=== PATIENT | male | born 1990 | race Caucasian/White ===

== ENCOUNTER 2017-05-25 16:35 | Emergency (ER) | payer OTHER ==
[~2017-05-25] VITALS: Ht 193 cm; Wt 81.6 kg
[~2017-05-25 16:35] MED LIST: DAYPRO600 M1 PO; NAPROSYN500 MG PO; ROBAXIN750 MG PO
[2017-05-25] MEDS ORDERED: CHLORZOXAZONE500 M2 PO (17:20)
[2017-05-25] MEDS ORDERED: NAPROSYN500 MG PO (17:20)
== END 2017-05-25 20:13 | disposition home or self-care (01) ==
LOC: ED 16:35
DX: M54.5 Low back pain (principal); R03.0 Elevated blood-pressure reading, without diagnosis of hypertension; F17.200 Nicotine dependence, unspecified, uncomplicated

== ENCOUNTER 2018-09-17 02:29 | Emergency (ER) | payer SELFPAY ==
[~2018-09-17] VITALS: Ht 193 cm; Wt 77.1 kg
[~2018-09-17 02:29] MED LIST changes: +CHLORZOXAZONE500 M2 PO
[2018-09-17] MEDS ORDERED: IBU800 MG PO (02:33)
[2018-09-17] MEDS ORDERED: CLINDAMYCIN HC300 MG PO (02:33)
== END 2018-09-17 02:40 | disposition home or self-care (01) ==
LOC: ED 02:29
DX: K02.9 Dental caries, unspecified (principal); F17.200 Nicotine dependence, unspecified, uncomplicated; Z79.899 Other long term (current) drug therapy

== ENCOUNTER 2019-12-03 22:36 | Emergency (ER) | payer BC ==
[~2019-12-03] VITALS: Ht 190.5 cm; Wt 79.4 kg
[~2019-12-03 22:36] MED LIST changes: +CLINDAMYCIN HC300 MG PO; +IBU800 MG PO
[2019-12-03 23:44] LABS: BASO % 0.2 % (0.0-1.0); EOS # 0.1 10*3/uL (0.0-0.4); EOS % 0.6 % (1.0-4.0); HEMATOCRIT 46.9 % (42.0-52.0); LYMPH # 1.5 10*3/uL (1.3-4.4); LYMPH % 18.4 % (27.0-41.0); MEAN CELL VOLUME 88.2 fl (80.0-94.0); MEAN CORPUSCULAR HGB 28.9 pg (27.0-31.0); MEAN CORPUSCULAR HGB CONC 32.8 g/dl (33.0-37.0); MEAN PLATELET VOLUME 8.7 fl (9.6-12.3); MONO # 0.6 10*3/uL (0.1-1.0); MONO % 7.2 % (3.0-9.0); NEUT # 5.9 10*3/uL (2.3-7.9); NEUT % 73.1 % (47.0-73.0); PLATELET COUNT AUTOMATED 265 10*3/uL (130-400); RED BLOOD COUNT 5.32 10*6/uL (4.50-5.90); RED CELL DISTRI WIDTH 13.2 % (0-14.5); WHITE BLOOD COUNT 8.1 10*3/uL (4.8-10.8)
[2019-12-04 00:01] LABS: ALBUMIN 4.2 gm/dl (3.1-4.5); ALKALINE PHOSPHATASE 42 U/L (45-117); BUN 16 mg/dl (7-24); CHLORIDE 109 mmol/L (98-107); CREATININE 0.97 mg/dL (0.70-1.30); POTASSIUM 3.8 mmol/L (3.5-5.1); SGOT/AST 20 IU/L (3-35); SGPT/ALT 23 U/L (12-78); SODIUM 139 mmol/L (136-145); TOTAL PROTEIN 7.3 gm/dL (6.4-8.2)
[2019-12-04 00:12] LABS: BILIRUBIN NEGATIVE (NEGATIVE); BLOOD NEGATIVE (NEGATIVE); CLARITY CLEAR (CLEAR); COLOR YELLOW (YELLOW); GLUCOSE NEGATIVE (NEGATIVE); KETONE NEGATIVE (NEGATIVE); LEUKO ESTERASE NEGATIVE (NEGATIVE); NITRITE NEGATIVE (NEGATIVE); UROBILINOGEN 0.2 E.U./dl (0.2-1.0)
[2019-12-04 00:21] LABS: BACTERIA TRACE; EPITHELIAL CELLS 0-2; MUCOUS 2+; RBC 0-2 rbc/hpf (0-2)
[2019-12-05 07:06] LABS: HEP B CORE AB, IGM Negative (Negative); HEPATITIS B SURFACE AG Negative (Negative); HEPATITIS C VIRUS ANTIBODY <0.1 s/co (0.0-0.9)
== END 2019-12-04 02:22 | disposition home or self-care (01) ==
LOC: ED 22:36
PROVIDERS: Emergency Medicine
DX: F45.1 Undifferentiated somatoform disorder (principal); F17.200 Nicotine dependence, unspecified, uncomplicated; Z79.899 Other long term (current) drug therapy

== ENCOUNTER 2019-12-09 20:18 | Emergency (ER) | payer BC ==
[~2019-12-09] VITALS: Wt 79.4 kg
== END 2019-12-09 23:04 | disposition home or self-care (01) ==
LOC: ED 20:18
DX: T15.91XA Foreign body on external eye, part unspecified, right eye, initial encounter (principal); Z79.899 Other long term (current) drug therapy; W45.8XXA Other foreign body or object entering through skin, initial encounter; Y93.89 Activity, other specified; Y92.89 Other specified places as the place of occurrence of the external cause; Y99.8 Other external cause status

== ENCOUNTER → 2020-03-31 | Outpatient (CLI) | payer SELFPAY | END | disposition home or self-care (01) | LOC: COVID19 14:56 | PROVIDERS: ATTEND Student in an Organized Health Care Education/Training Program | DX: U07.1 COVID-19 (principal) ==

== ENCOUNTER → 2020-12-11 | Outpatient (CLI) | payer OTHER ==
[2020-12-11 14:21] LABS: HEMATOCRIT 43.4 % (42.0-52.0); MEAN CELL VOLUME 88.9 fl (80.0-94.0); MEAN CORPUSCULAR HGB 29.7 pg (27.0-31.0); MEAN CORPUSCULAR HGB CONC 33.4 g/dl (33.0-37.0); MEAN PLATELET VOLUME 8.7 fl (9.6-12.3); RED BLOOD COUNT 4.88 10*6/uL (4.50-5.90); WHITE BLOOD COUNT 6.3 10*3/uL (4.8-10.8)
[2020-12-11 14:38] LABS: ALKALINE PHOSPHATASE 34 U/L (45-117); BUN 14 mg/dl (7-24); CHLORIDE 108 mmol/L (98-107); CHOLESTEROL 97 mg/dL (<200); CREATININE 0.77 mg/dL (0.70-1.30); FREE T4 0.85 ng/dl (0.76-1.46); LDL CHOLESTEROL 38 mg/dL (9-159); POTASSIUM 3.9 mmol/L (3.5-5.1); SGOT/AST 16 IU/L (3-35); SGPT/ALT 21 U/L (12-78); SODIUM 139 mmol/L (136-145); TOTAL PROTEIN 6.9 gm/dL (6.4-8.2); TRIGLYCERIDES 46 mg/dl (<150)
[2020-12-11 14:46] LABS: VITAMIN D, 25-HYDROXY 28.1 ng/mL (30-100)
== END | disposition home or self-care (01) ==
LOC: LAB 13:35
PROVIDERS: ATTEND Family Medicine
DX: E55.9 Vitamin D deficiency, unspecified (principal); R53.82 Chronic fatigue, unspecified; M25.50 Pain in unspecified joint; R63.4 Abnormal weight loss; R20.2 Paresthesia of skin; K58.9 Irritable bowel syndrome, unspecified; R51.9 Headache, unspecified

== ENCOUNTER → 2021-05-21 | Outpatient (CLI) | payer OTHER ==
[2021-05-21 18:26] LABS: BASO % 0.3 % (0.0-1.0); EOS # 0.1 10*3/uL (0.0-0.4); EOS % 1.8 % (1.0-4.0); HEMATOCRIT 49.1 % (42.0-52.0); LYMPH # 2.1 10*3/uL (1.3-4.4); LYMPH % 28.5 % (27.0-41.0); MEAN CELL VOLUME 90.3 fl (80.0-94.0); MEAN CORPUSCULAR HGB 29.8 pg (27.0-31.0); MEAN PLATELET VOLUME 8.7 fl (9.6-12.3); MONO # 0.6 10*3/uL (0.1-1.0); MONO % 8.6 % (3.0-9.0); NEUT # 4.4 10*3/uL (2.3-7.9); NEUT % 60.5 % (47.0-73.0); PLATELET COUNT AUTOMATED 274 10*3/uL (130-400); RED BLOOD COUNT 5.44 10*6/uL (4.50-5.90); WHITE BLOOD COUNT 7.2 10*3/uL (4.8-10.8)
[2021-05-21 19:15] LABS: ALBUMIN 4.3 gm/dl (3.1-4.5); ALKALINE PHOSPHATASE 42 U/L (45-117); BUN 19 mg/dl (7-24); CHLORIDE 108 mmol/L (98-107); CREATININE 0.82 mg/dL (0.70-1.30); POTASSIUM 3.6 mmol/L (3.5-5.1); SGOT/AST 19 IU/L (3-35); SGPT/ALT 24 U/L (12-78); SODIUM 140 mmol/L (136-145); TOTAL PROTEIN 7.5 gm/dL (6.4-8.2)
[2021-05-23 12:06] LABS: SJOGREN ANTI-SS-A <0.2 AI (0.0-0.9); SJOREN AB, ANTI-SS-B <0.2 AI (0.0-0.9)
[2021-05-26 18:06] LABS: CODFISH, IGE <0.10 kU/L (Class 0); EGG WHITE, IGE <0.10 kU/L (Class 0); MILK (COW), IGE <0.10 kU/L (Class 0); PEANUT, IGE <0.10 kU/L (Class 0); SOYBEAN, IGE <0.10 kU/L (Class 0); WHEAT, IGE <0.10 kU/L (Class 0)
== END | disposition home or self-care (01) ==
LOC: LAB 17:35
PROVIDERS: ATTEND Internal Medicine
DX: H04.123 Dry eye syndrome of bilateral lacrimal glands (principal); R10.84 Generalized abdominal pain; Z91.018 Allergy to other foods; T78.40XA Allergy, unspecified, initial encounter; X58.XXXA Exposure to other specified factors, initial encounter

== ENCOUNTER → 2021-06-17 | Outpatient (CLI) | payer OTHER | END | disposition home or self-care (01) | LOC: US 06-03 09:30 | PROVIDERS: ATTEND Internal Medicine | DX: J44.9 Chronic obstructive pulmonary disease, unspecified (principal); J98.11 Atelectasis; R07.9 Chest pain, unspecified; R10.84 Generalized abdominal pain ==

== ENCOUNTER 2022-07-21 11:54 | Emergency (ER) | payer SELFPAY ==
[~2022-07-21] VITALS: Ht 190.5 cm; Wt 81.6 kg
[2022-07-21 13:37] LABS: BILIRUBIN Negative (Negative); BLOOD Negative (Negative); CLARITY Clear (Clear); COLOR Dark Yellow (Yellow); GLUCOSE Negative (Negative); KETONE 1+ (Negative); LEUKO ESTERASE Trace (Negative); NITRITE Negative (Negative); PH 5.5 (4.5-8.0); SPECIFIC GRAVITY >= 1.030 (1.001-1.030)
[2022-07-21 13:44] LABS: BASO % 0.2 % (0.0-1.0); EOS # 0.1 10*3/uL (0.0-0.4); EOS % 0.7 % (1.0-4.0); HEMATOCRIT 47.8 % (42.0-52.0); LYMPH # 1.6 10*3/uL (1.3-4.4); MEAN CELL VOLUME 87.5 fl (80.0-94.0); MEAN CORPUSCULAR HGB 29.3 pg (27.0-31.0); MEAN CORPUSCULAR HGB CONC 33.5 g/dl (33.0-37.0); MEAN PLATELET VOLUME 8.4 fl (9.6-12.3); MONO # 0.6 10*3/uL (0.1-1.0); MONO % 6.3 % (3.0-9.0); NEUT # 6.5 10*3/uL (2.3-7.9); NEUT % 74.3 % (47.0-73.0); PLATELET COUNT AUTOMATED 279 10*3/uL (130-400); RED BLOOD COUNT 5.46 10*6/uL (4.50-5.90); RED CELL DISTRI WIDTH 12.8 % (0-14.5); WHITE BLOOD COUNT 8.7 10*3/uL (4.8-10.8)
[2022-07-21 13:47] LABS: URINE AMPHETAMINES Negative (1000ng/ml); URINE BARBITURATES Negative (200ng/ml); URINE BENZODIAZEPINES Negative (200ng/ml); URINE CANNABINOIDS (THC) Positive (50ng/ml); URINE COCAINE Negative (300ng/ml); URINE METHADONE Negative (300ng/ml); URINE OPIATES Negative (300ng/ml); URINE PHENCYCLIDINE Negative (25ng/ml)
[2022-07-21 13:49] LABS: BACTERIA 2+; CALCIUM OXALATE CRYSTALS 1+
[2022-07-21 13:51] LABS: MUCOUS 2+
[2022-07-21 13:55] LABS: ALKALINE PHOSPHATASE 41 U/L (46-116); BUN 10 mg/dl (9-23); CHLORIDE 102 mmol/L (98-107); POTASSIUM 3.4 mmol/L (3.4-5.1); SGPT/ALT 25 U/L (10-49); TOTAL PROTEIN 7.4 gm/dL (6.0-8.0)
== END 2022-07-21 17:24 | disposition home or self-care (01) ==
LOC: ED 11:54
PROVIDERS: Physician Assistant
DX: Z20.2 Contact with and (suspected) exposure to infections with a predominantly sexual mode of transmission (principal)

== ENCOUNTER 2024-04-04 11:19 | Emergency (ER) | payer BC ==
[~2024-04-04] VITALS: Ht 193 cm; Wt 90.7 kg
[2024-04-04] MEDS ORDERED: VIBRAMYCIN100 MG PO (11:39)
[2024-04-04] MEDS ORDERED: METRONIDAZOLE 500 MG TAB PO ONE (11:40)
[2024-04-04 11:52] LABS: BILIRUBIN Negative (Negative); BLOOD Negative (Negative); CLARITY Clear (Clear); COLOR Dark Yellow (Yellow); GLUCOSE Negative (Negative); KETONE Trace (Negative); LEUKO ESTERASE Negative (Negative); NITRITE Negative (Negative); PH 5.5 (4.5-8.0); SPECIFIC GRAVITY >= 1.030 (1.001-1.030)
[2024-04-04 12:03] LABS: EPITHELIAL CELLS 0-2; MUCOUS 2+; WBC 0-2 wbc/hpf (0-5)
== END 2024-04-04 11:52 | disposition home or self-care (01) ==
LOC: ED 11:19
PROVIDERS: Physician Assistant Medical
DX: Z04.89 Encounter for examination and observation for other specified reasons (principal); Z90.89 Acquired absence of other organs; Z98.890 Other specified postprocedural states

== ENCOUNTER 2024-06-14 00:47 | Inpatient (IN) | payer BC ==
[~2024-06-14] VITALS: Ht 188 cm; Wt 81.7 kg
[2024-06-14 00:47] VITALS: BP 134/84
[~2024-06-14 00:47] MED LIST changes: +VIBRAMYCIN100 MG PO
[2024-06-14] MEDS ORDERED: diphenhydrAMINE hydrochloride 50 MG/ML VIAL IM PRN (00:55)
[2024-06-14] MEDS ORDERED: Midazolam Hydrochloride 5 MG/5 ML VIAL IM ONE ×2 (00:55→03:15)
[2024-06-14 01:25] LABS: HEMATOCRIT 49.4 % (42.0-52.0); MEAN CELL VOLUME 85.3 fl (80.0-94.0); MEAN CORPUSCULAR HGB 28.7 pg (27.0-31.0); MEAN CORPUSCULAR HGB CONC 33.6 g/dl (33.0-37.0); MEAN PLATELET VOLUME 8.4 fl (9.6-12.3); PLATELET COUNT AUTOMATED 313 10*3/uL (130-400); RED BLOOD COUNT 5.79 10*6/uL (4.50-5.90); RED CELL DISTRI WIDTH 12.8 % (0-14.5); WHITE BLOOD COUNT 22.9 10*3/uL (4.8-10.8)
[2024-06-14 01:28] LABS: MANUAL DIFF REFLEX YES
[2024-06-14] MEDS ORDERED: LORazepam 1 MG TAB PO ONE (01:30)
[2024-06-14 01:38] LABS: ACT PARTIAL THROMBO TIME 27.3 SECONDS (20.0-32.1)
[2024-06-14 01:42] LABS: ALKALINE PHOSPHATASE 41 U/L (46-116); BUN 14 mg/dl (9-23); CHLORIDE 102 mmol/L (98-107); CPK 1019 U/L (34-171); POTASSIUM 3.7 mmol/L (3.4-5.1); SGPT/ALT 17 U/L (5-49); TOTAL PROTEIN 7.9 gm/dL (6.0-8.0)
[2024-06-14 01:47] LABS: BURR CELLS FEW; OVALOCYTES FEW; PLATELET SUFFICIENCY NORMAL (NORMAL); TOTAL CELLS COUNTED 100 #CELLS
[2024-06-14 01:49] LABS: ETHYL ALCOHOL < 3.0 mg/dl (<3)
[2024-06-14 01:52] LABS: BILIRUBIN Negative (Negative); BLOOD Trace-Lysed (Negative); CLARITY Cloudy (Clear); COLOR Dark Yellow (Yellow); GLUCOSE Negative (Negative); KETONE 3+ (Negative); LEUKO ESTERASE Negative (Negative); NITRITE Negative (Negative); PH 5.5 (4.5-8.0); SPECIFIC GRAVITY 1.025 (1.001-1.030); UROBILINOGEN 0.2 E.U./dl (0.0-1.0)
[2024-06-14 02:00] LABS: URINE AMPHETAMINES Negative (1000ng/ml); URINE BARBITURATES Negative (200ng/ml); URINE BENZODIAZEPINES Negative (200ng/ml); URINE CANNABINOIDS (THC) Positive (50ng/ml); URINE COCAINE Negative (300ng/ml); URINE METHADONE Negative (300ng/ml); URINE OPIATES Negative (300ng/ml); URINE PHENCYCLIDINE Negative (25ng/ml)
[2024-06-14 02:01] LABS: BACTERIA 1+; FINE GRANULAR CAST 0-2; MUCOUS 1+; WBC 0-2 wbc/hpf (0-5)
[2024-06-14] MEDS ORDERED: SODIUM CHLORIDE 0.9% 1,000 ML IV ONE ×3 (02:25→10:35)
[2024-06-14] MEDS ORDERED: Midazolam Hydrochloride 5 MG/5 ML VIAL IM PRN (02:25)
[2024-06-14] MEDS ORDERED: Haloperidol Lactate 5 MG/ML AMP IM PRN (03:15)
[2024-06-14] MEDS ORDERED: diphenhydrAMINE hydrochloride 50 MG/ML VIAL IM ONE (03:20)
[2024-06-14 08:16] LABS: BASO % 0.2 % (0.0-1.0); EOS % 0.1 % (1.0-4.0); HEMATOCRIT 41.4 % (42.0-52.0); MEAN CELL VOLUME 85.2 fl (80.0-94.0); MEAN CORPUSCULAR HGB CONC 34.1 g/dl (33.0-37.0); MEAN PLATELET VOLUME 8.6 fl (9.6-12.3); MONO # 1.2 10*3/uL (0.1-1.0); MONO % 8.2 % (3.0-9.0); NEUT # 10.6 10*3/uL (2.3-7.9); NEUT % 69.7 % (47.0-73.0); PLATELET COUNT AUTOMATED 225 10*3/uL (130-400); RED BLOOD COUNT 4.86 10*6/uL (4.50-5.90); WHITE BLOOD COUNT 15.2 10*3/uL (4.8-10.8)
[2024-06-14] MEDS ORDERED: ACETAMINOPHEN 325 MG TAB PO PRN (10:30)
[2024-06-14] MEDS ORDERED: ACETAMINOPHEN 650 MG SUPP R PRN (10:30)
[2024-06-14] MEDS ORDERED: BISACODYL 10 MG SUPP R PRN (10:30)
[2024-06-14] MEDS ORDERED: BISACODYL 5 MG TAB PO PRN (10:30)
[2024-06-14 14:15] VITALS: BP 126/75
[2024-06-14 15:01] LABS: BUN 18 mg/dl (9-23); CHLORIDE 105 mmol/L (98-107); POTASSIUM 3.8 mmol/L (3.4-5.1)
[2024-06-14 15:02] LABS: CPK 2706 U/L (34-171)
[2024-06-14 16:00] VITALS: BP 100/60
[2024-06-14] MEDS ORDERED: Midazolam Hydrochloride 2 MG/2 ML VIAL IV ONE (16:40)
[2024-06-14] MEDS ORDERED: SODIUM CHLORIDE 0.9% 1,000 ML IV SCH (17:30)
[2024-06-14 20:00] VITALS: BP 106/63
[2024-06-15] VITALS: BP 110/75
[2024-06-15] MEDS ORDERED: Melatonin 5 MG TABLET PO PRN (00:45)
[2024-06-15 06:00] LABS: ALKALINE PHOSPHATASE 30 U/L (46-116); BUN 13 mg/dl (9-23); CHLORIDE 110 mmol/L (98-107); CHOLESTEROL 65 mg/dL (<200); LDL CHOLESTEROL 17 mg/dL (9-159); POTASSIUM 4.3 mmol/L (3.4-5.1); SGPT/ALT 39 U/L (5-49); TOTAL PROTEIN 5.2 gm/dL (6.0-8.0); TRIGLYCERIDES 38 mg/dl (<150)
[2024-06-15 06:21] LABS: BASO % 0.4 % (0.0-1.0); EOS # 0.1 10*3/uL (0.0-0.4); EOS % 1.3 % (1.0-4.0); MEAN CELL VOLUME 87.2 fl (80.0-94.0); MEAN CORPUSCULAR HGB 29.1 pg (27.0-31.0); MEAN CORPUSCULAR HGB CONC 33.4 g/dl (33.0-37.0); MEAN PLATELET VOLUME 8.8 fl (9.6-12.3); MONO # 0.8 10*3/uL (0.1-1.0); MONO % 11.1 % (3.0-9.0); NEUT # 3.9 10*3/uL (2.3-7.9); NEUT % 55.2 % (47.0-73.0); PLATELET COUNT AUTOMATED 206 10*3/uL (130-400); RED BLOOD COUNT 4.36 10*6/uL (4.50-5.90); RED CELL DISTRI WIDTH 13.2 % (0-14.5); WHITE BLOOD COUNT 7.1 10*3/uL (4.8-10.8)
[2024-06-15 08:00] VITALS: BP 128/76
[2024-06-15] MEDS ORDERED: SODIUM CHLORIDE 0.9% 1,000 ML IV SCH (09:55)
[2024-06-15] MEDS ORDERED: Enoxaparin Sodium 40 MG/0.4 ML SYR SC SCH (10:00)
[2024-06-15] MEDS ORDERED: CYANOCOBALAMIN 1,000 MCG/ML VIAL IM ONE (11:05)
[2024-06-15 12:00] VITALS: BP 117/71
[2024-06-15 16:00] VITALS: BP 142/61; BP 142/71
[2024-06-15 20:00] VITALS: BP 108/62
[2024-06-15] MEDS ORDERED: SODIUM CHLORIDE 0.9% 1,000 ML IV ONE (23:00)
[2024-06-16] VITALS: BP 130/60
[2024-06-16 06:17] LABS: BASO % 0.2 % (0.0-1.0); EOS # 0.1 10*3/uL (0.0-0.4); EOS % 0.7 % (1.0-4.0); HEMATOCRIT 41.8 % (42.0-52.0); MEAN CELL VOLUME 88.4 fl (80.0-94.0); MEAN CORPUSCULAR HGB CONC 32.8 g/dl (33.0-37.0); MONO # 0.7 10*3/uL (0.1-1.0); MONO % 8.5 % (3.0-9.0); NEUT # 5.6 10*3/uL (2.3-7.9); NEUT % 68.9 % (47.0-73.0); PLATELET COUNT AUTOMATED 248 10*3/uL (130-400); RED BLOOD COUNT 4.73 10*6/uL (4.50-5.90); RED CELL DISTRI WIDTH 12.9 % (0-14.5); WHITE BLOOD COUNT 8.1 10*3/uL (4.8-10.8)
[2024-06-16 06:26] LABS: BUN 7 mg/dl (9-23); CHLORIDE 105 mmol/L (98-107); POTASSIUM 3.9 mmol/L (3.4-5.1)
[2024-06-16 08:00] VITALS: BP 112/76
[2024-06-16 12:00] VITALS: BP 122/82
[2024-06-16 16:00] VITALS: BP 112/74
[2024-06-16] MEDS ORDERED: SODIUM CHLORIDE 0.9% 1,000 ML IV ONE (18:30)
[2024-06-16 21:00] VITALS: BP 116/74
[2024-06-16] MEDS ORDERED: OLANZapine 2.5 MG TAB PO SCH (22:00)
[2024-06-17 06:10] LABS: BASO % 0.5 % (0.0-1.0); EOS # 0.2 10*3/uL (0.0-0.4); EOS % 2.6 % (1.0-4.0); HEMATOCRIT 39.6 % (42.0-52.0); MEAN CORPUSCULAR HGB 28.9 pg (27.0-31.0); MEAN CORPUSCULAR HGB CONC 32.8 g/dl (33.0-37.0); MEAN PLATELET VOLUME 8.9 fl (9.6-12.3); MONO # 0.6 10*3/uL (0.1-1.0); MONO % 9.5 % (3.0-9.0); NEUT # 2.8 10*3/uL (2.3-7.9); NEUT % 42.1 % (47.0-73.0); PLATELET COUNT AUTOMATED 238 10*3/uL (130-400); RED CELL DISTRI WIDTH 13.2 % (0-14.5); WHITE BLOOD COUNT 6.6 10*3/uL (4.8-10.8)
[2024-06-17 06:28] LABS: BUN 9 mg/dl (9-23); CHLORIDE 109 mmol/L (98-107); POTASSIUM 4.2 mmol/L (3.4-5.1)
[2024-06-17 08:00] VITALS: BP 128/67
[2024-06-17] MEDS ORDERED: MG-AL HYDROXIDE/SIMETICONE 30 ML UDC PO ONE (09:00)
[2024-06-17] MEDS ORDERED: SODIUM CHLORIDE 0.9% 1,000 ML IV SCH (09:20)
[2024-06-17 12:00] VITALS: BP 124/67
[2024-06-17 16:00] VITALS: BP 130/63
[2024-06-17 20:00] VITALS: BP 130/73
[2024-06-18] VITALS: BP 130/60
[2024-06-18 06:15] LABS: BASO % 0.5 % (0.0-1.0); EOS # 0.3 10*3/uL (0.0-0.4); EOS % 3.4 % (1.0-4.0); HEMATOCRIT 44.4 % (42.0-52.0); MEAN CELL VOLUME 88.1 fl (80.0-94.0); MEAN CORPUSCULAR HGB 28.8 pg (27.0-31.0); MEAN CORPUSCULAR HGB CONC 32.7 g/dl (33.0-37.0); MEAN PLATELET VOLUME 8.9 fl (9.6-12.3); MONO # 0.7 10*3/uL (0.1-1.0); MONO % 8.3 % (3.0-9.0); NEUT # 3.9 10*3/uL (2.3-7.9); NEUT % 48.3 % (47.0-73.0); PLATELET COUNT AUTOMATED 266 10*3/uL (130-400); RED BLOOD COUNT 5.04 10*6/uL (4.50-5.90); RED CELL DISTRI WIDTH 13.2 % (0-14.5)
[2024-06-18 07:35] LABS: BUN 10 mg/dl (9-23); CHLORIDE 108 mmol/L (98-107); POTASSIUM 3.9 mmol/L (3.4-5.1)
[2024-06-18 08:00] VITALS: BP 122/65
[2024-06-18] MEDS ORDERED: SODIUM CHLORIDE 0.9% 1,000 ML IV SCH (08:15)
== END 2024-06-18 17:11 | DRG 558 ==
LOC: ED 00:47 → EDHOLD 09:20 → 4E 09:20
PROVIDERS: Emergency Medicine; Internal Medicine; Student in an Organized Health Care Education/Training Program; ADMIT Internal Medicine; ATTEND Internal Medicine
DX: M62.82 Rhabdomyolysis (principal); F23 Brief psychotic disorder; F33.9 Major depressive disorder, recurrent, unspecified; F29 Unspecified psychosis not due to a substance or known physiological condition; D72.825 Bandemia; F17.210 Nicotine dependence, cigarettes, uncomplicated; R73.9 Hyperglycemia, unspecified; R74.8 Abnormal levels of other serum enzymes; R74.01 Elevation of levels of liver transaminase levels; Z83.3 Family history of diabetes mellitus; Z82.49 Family history of ischemic heart disease and other diseases of the circulatory system